=== PATIENT | female | born 1980 | race Caucasian/White ===

== ENCOUNTER 2017-01-03 02:49 | Emergency (ER) | payer MEDICAID ==
[~2017-01-03] VITALS: Ht 185.4 cm; Wt 68.0 kg
[2017-01-03 02:50] VITALS: BP 133/86
--- NOTE | 2017-01-03 02:51 | NUR ---
PT ADRIAN ALS. TAKEN TO BED 3
--- NOTE | 2017-01-03 02:53 | NUR ---
Dr. Young evaluating patient at bedside.
--- NOTE | 2017-01-03 03:14 | NUR ---
37Y F BIB EMS W/ C COLLAR ON. EMS FOUND PT LYING ON THE FLOOR AT [facility]. EMS NOT SURE IF PT FELL OR JUST LYING DOWN, PT BEEN DRINKING AND POSITIVE ETOH. DENIES PAIN/DISCOMFORT.
[2017-01-03 06:40] VITALS: BP 120/75
--- NOTE | 2017-01-03 06:40 | NUR ---
Patient discharged with v/s stable. Written and verbal after care instructions given and explained. Patient verbalized understanding. Ambulatory with steady gait. All questions addressed prior to discharge. Advised to follow up with PMD.
== END 2017-01-03 06:40 | disposition home or self-care (01) ==
LOC: MED 02:49
DX: S13.4XXA Sprain of ligaments of cervical spine, initial encounter (principal); F10.129 Alcohol abuse with intoxication, unspecified; R55 Syncope and collapse; G61.0 Guillain-Barre syndrome; X58.XXXA Exposure to other specified factors, initial encounter; Y93.89 Activity, other specified; Y92.89 Other specified places as the place of occurrence of the external cause; Y99.8 Other external cause status; Y90.7 Blood alcohol level of 200-239 mg/100 ml
CPT/HCPCS: 36415; 72040; 99285; G0482; Q0092

== ENCOUNTER 2017-02-07 21:58 | Emergency (ER) | payer MEDICAID ==
[~2017-02-07] VITALS: Ht 185.4 cm; Wt 70.3 kg
--- NOTE | 2017-02-07 21:58 | NUR ---
BIBA TO ER BED 6
[2017-02-07 22:00] VITALS: BP 121/52
--- NOTE | 2017-02-07 22:10 | NUR ---
C/O ALOC, PER EMS;PATIENT WAS FOUND IN THE [facility], UNREPONSIVE. SUSPECT HEROINE OVER DOSE PER PT.HX. 1 MG NARCAN GIVEN ON SCENE. C-COLLAR APPLIED, BS 132
[2017-02-07] MEDS ORDERED: NACL 0.9% 1,000 ML IV ONE (22:15)
[2017-02-07] MEDS ORDERED: fentaNYL 0.05 MG/ML VIAL IVP ONE (22:20)
--- NOTE | 2017-02-07 22:30 | NUR ---
Patient being evaluated by physician at bedside.
--- NOTE | 2017-02-07 23:24 | NUR ---
PT PULLED OUT IV, IV removed, catheter intact and site benign. Applied folded 4x4 gauze and tape to stop bleeding ER MD DR OLIVER MADE AWARE
--- NOTE | 2017-02-08 00:20 | NUR ---
PT LEAVING ER TO GO GET CT
--- NOTE | 2017-02-08 00:35 | NUR ---
PT RETURN TO ER FROM CT ACCOMPANIED BY UNIT AID
--- NOTE | 2017-02-08 01:25 | NUR ---
Patient discharged with v/s stable. Written and verbal after care instructions given and explained. Patient verbalized understanding. Ambulatory with steady gait. All questions addressed prior to discharge. Advised to follow up with PMD. PT STATES SHE WILL CONTACT HER SISTER -IN-LAW TO PICK HER UP, NAMED NIK
[2017-02-08 01:26] VITALS: BP 118/76
== END 2017-02-08 01:25 | disposition home or self-care (01) ==
LOC: MED 21:58
DX: F10.129 Alcohol abuse with intoxication, unspecified (principal); F15.10 Other stimulant abuse, uncomplicated; Z88.6 Allergy status to analgesic agent
CPT/HCPCS: 36415; 74176; 80053; 80305; 81002; 81025; 85025; 93005; 96361; 96374; 99285; G0480; G0482; J3010; J7030

== ENCOUNTER 2020-03-01 14:35 | Emergency (ER) | payer MEDICAID ==
[~2020-03-01] VITALS: Ht 182.9 cm; Wt 65.9 kg
[2020-03-01 14:36] VITALS: BP 142/99
--- NOTE | 2020-03-01 14:45 | NUR ---
PT UNABLE TO PROVIDE URINE SAMPLE AT THIS TIME. URINE SPECIMEN CONTAINER WITH PT AT BEDSIDE.
--- NOTE | 2020-03-01 14:45 | NUR ---
PT AMBULATED TO BED 11
--- NOTE | 2020-03-01 14:50 | NUR ---
BILATERAL FLANK PAIN X 2 WEEKS UPPER ABDOMINAL PAIN X 1 WEEK, ACCOMPANIED BY VOMITING SOUGHT MD CONSULT. DX: KIDNEY INFECTION, PRESCRIBED KEFLEX DIDNOT COMPLIED PLAN OF TX . PT AWAKE , ALERT, AFIBRILE , AMBULATORY WITH STEADY GAIT , PINK PALPABRAL CONJUNCTVAE , ANICTERIC SCLRAE , SCE , CBS BLF , FLAT SOF NABS NONTANDER ABDOMEN. PMH: GBS, LIVER CIRRHOSIS MEDS: NONE
--- NOTE | 2020-03-01 15:19 | NUR ---
MICHAEL WANG AT BEDSIDE EVALUATING PT.
[2020-03-01] MEDS ORDERED: NACL 0.9% 1,000 ML IV ONE (15:25)
[2020-03-01] MEDS ORDERED: ONDANSETRON 4 MG/2 ML VIAL IVP ONE (15:30)
--- NOTE | 2020-03-01 15:55 | NUR ---
PT TO CT SCAN VIA WHEELCHAIR , AWAKE , ALERT.
[2020-03-01 15:59] LABS: BASOPHILS # (AUTO) 0.1 K/uL (0.00-0.22); BASOPHILS % (AUTO) 2.2 % (0.0-2.0); EOSINOPHILS % (AUTO) 0.7 % (0.0-4.0); HEMATOCRIT 30.7 % (36-48); HEMOGLOBIN 10.4 g/dL (12.0-16.0); MEAN CORPUSCULAR HEMOGLOBIN 34 pg (27-31); MEAN CORPUSCULAR HGB CONC 34 g/dL (33-37); MEAN CORPUSCULAR VOLUME 100.7 fL (80-94); MONOCYTES # (AUTO) 0.4 K/uL (0.8-1.0); MONOCYTES % (AUTO) 14.6 % (1.7-9.3); NEUTROPHILS # (AUTO) 1.5 K/uL (1.8-7.7); NEUTROPHILS % (AUTO) 49.5 % (42.2-75.2); PLATELET COUNT (AUTO) 138 K/uL (140-450); RED BLOOD CELL COUNT(AUTO) 3.04 MIL/uL (4.20-5.40); RED CELL DISTRIBUTION WIDTH 16.1 % (11.6-13.7)
--- NOTE | 2020-03-01 16:02 | NUR ---
PT BACK FROM CT SCAN VIA WHEELCHAIR.
[2020-03-01 16:09] LABS: APPEARANCE,URINE HAZY (CLEAR); BILIRUBIN,URINE 1+ (NEGATIVE); BLOOD, URINE NEGATIVE (NEGATIVE); COLOR,URINE YELLOW (YELLOW); LEUKOCYTE ESTERASE ,URINE NEGATIVE (NEGATIVE); NITRITE, URINE NEGATIVE (NEGATIVE); PH,URINE 5.5 (5.0-9.0); UGLUCOSE NEGATIVE (NEGATIVE)
[2020-03-01 16:18] LABS: ALBUMIN 3.5 g/dL (3.4-5.0); ANION GAP 17.3 (8-16); CARBON DIOXIDE 25.3 mmol/L (21-32); CREATININE 0.8 mg/dL (0.6-1.3); POTASSIUM 3.6 mmol/L (3.5-5.1); TOTAL BILIRUBIN 0.7 mg/dL (0.0-1.0)
--- NOTE | 2020-03-01 16:44 | NUR ---
PT ASK SOME FOOD AND CUP OF WATER .PA WANG INFORMED AND AWARE.
--- NOTE | 2020-03-01 16:51 | NUR ---
MICHAEL WANG REVALUATING PT.
--- NOTE | 2020-03-01 17:10 | NUR ---
Patient discharged with v/s stable. Written and verbal after care instructions given and explained regarding abdominal pain. Patient alert, oriented and verbalized understanding of instructions. Ambulatory with steady gait. All questions addressed prior to discharge. ID band removed. Patient advised to follow up with PMD. Rx of zofran and librium given. Patient educated on indication of medication including possible reaction and side effects. Opportunity to ask questions provided and answered.
[2020-03-01 17:11] VITALS: BP 140/88
== END 2020-03-01 17:10 | disposition home or self-care (01) ==
LOC: MED 14:35
DX: F10.10 Alcohol abuse, uncomplicated (principal); R10.84 Generalized abdominal pain; D50.9 Iron deficiency anemia, unspecified; R03.0 Elevated blood-pressure reading, without diagnosis of hypertension; Z88.8 Allergy status to other drugs, medicaments and biological substances
CPT/HCPCS: 36415; 74176; 80053; 81003; 81025; 83690; 85025; 96361; 96374; 99284; J2405; J7030

== ENCOUNTER 2020-06-14 00:30 | Emergency (ER) | payer MEDICAID ==
[~2020-06-14] VITALS: Ht 185.4 cm; Wt 65.8 kg
--- NOTE | 2020-06-14 00:34 | NUR ---
PETER CHINO TO ER CHAIR C
[2020-06-14 00:36] VITALS: BP 122/82
--- NOTE | 2020-06-14 00:40 | NUR ---
PT PLACE IN [facility]. PT IS AAOX3, COOPERATIVE AND CALM. PT BIB BLS RUN FOR ETOH SHE WAS FOUND AT THE [facility]. PT GIVEN WARM BLANKET AND AWAITING FOR ERMD TO EXAMINE.
--- NOTE | 2020-06-14 01:30 | NUR ---
PT ASLEEP ON BED AND AROUSABLE. NEEDS ATTENDED.
--- NOTE | 2020-06-14 02:15 | NUR ---
PT ASLEEP ON BED AND OFFERED JUICE AND SANDWITCH PT REFUSE AND WANTED TO SLEEP. SR UP FOR SAFETY AND PT WITHIN THE NURSE STATION VIEW.
--- NOTE | 2020-06-14 04:00 | NUR ---
PT ON GIVEN WARM BLANKET.
[2020-06-14 08:30] VITALS: BP 123/81
--- NOTE | 2020-06-14 08:30 | NUR ---
Patient discharged by Rosana MCKEON (charted by Guy MCKEON) with v/s stable. Written and verbal after care instructions about alcohol intoxication given and explained. Patient verbalized understanding. Ambulatory with steady gait. All questions addressed prior to discharge. Advised to follow up with PMD.
== END 2020-06-14 08:30 | disposition home or self-care (01) ==
LOC: MED 00:30
DX: R41.82 Altered mental status, unspecified (principal); F10.129 Alcohol abuse with intoxication, unspecified
CPT/HCPCS: 36415; 99283; G0482